=== PATIENT | male | born 1935 | race Caucasian/White ===

== ENCOUNTER → 2018-10-12 | Outpatient (CLI) | payer OTHER ==
[~2018-10-12] MED LIST: ALTACE10 MG PO; AMARYL1 MG PO; ASPIR 8181 MG PO; BENTYL 10 MG CA10 M1 PO; CARDIOTABS PO; JUICE PLUS PO; METAMUCIL1 EAC1 PO; MIRALAX17 GM PO; MYRBETRIQ25 MG PO; NITROGLYCERIN0.4 MG SUBLING; OMEPRAZOLE40 MG PO; RESTORIL15 M1 PO; SIMVASTATIN40 MG PO; STOOL SOFTENER1 EAC2 PO; TENORMIN25 MG PO; TESTOPEL75 MG IMPLANT; TUMS PO; VESICARE 5 MG TA5 MG PO; VIAGRA100 MG PO; ZANTAC 150MG T150 MG PO
== END ==
LOC: RAD 08:10
DX: K22.8 Other specified diseases of esophagus (principal); R13.13 Dysphagia, pharyngeal phase

== ENCOUNTER → 2018-10-18 | Outpatient (CLI) | payer OTHER ==
[~2018-10-18] MED LIST changes: +BYSTOLIC 5 MG5 M1 PO; +LIPITOR 20 MG T20 M1 PO; +PROTONIX40 M1 PO
== END ==
LOC: SPEECH 11:45 → RAD 11:45
DX: K22.8 Other specified diseases of esophagus (principal); M47.812 Spondylosis without myelopathy or radiculopathy, cervical region; Z98.890 Other specified postprocedural states

== ENCOUNTER → 2018-10-25 | Outpatient (CLI) | payer OTHER ==
[~2018-10-25] VITALS: Ht 172.7 cm; Wt 61.2 kg
--- NOTE | ~2018-10-25 | P ---
[facility] [place] [address] PROCEDURE REPORT Name: VERENA HARPER Room #: REG [facility].#: [id number] Admission: 10/25/18 ������������������ Attend Phys: Edward Quiroz MD Discharge: ������������������ Date of : 33 Report #: [id number] THIS REPORT FOR: //name// CC: Edward Pisano BRIEF HISTORY: The patient is an 83-year-old male with a history of achalasia. He complains of worsening reflux symptoms. Recent radiologic studies revealed poor emptying and stasis of material in the distal esophagus. He has had botox injections in the past and the last was about a year and a half ago. PREOPERATIVE DIAGNOSIS: Achalasia with increased symptoms. POSTOPERATIVE DIAGNOSES: 1. Achalasia. 2. Diffuse superficial esophagitis, likely related to stasis. 3. Distal esophageal diverticulum. 4. Submucosal lesion in the body of the stomach. 5. Diffuse gastritis. MEDICATIONS: Deep sedation with propofol per anesthesia. SPECIMEN: Biopsies of submucosal lesion in the body of the stomach. ESTIMATED BLOOD LOSS: 20 mL. PROCEDURE: EGD with injection of Botox and biopsy with hemostasis of biopsy site. FINDINGS: Prior to propofol sedation, the procedure of upper endoscopy discussed with the patient as well as potential risks and its complications. He indicates he understands and desires to proceed. With the patient in the left lateral decubitus position, the Olympus video endoscope was inserted in the cervical esophagus under direct vision without difficulty. Examination of this organ through its entire length revealed normal esophageal mucosa in the proximal esophagus. However, as we advanced the scope in the mid and distal esophagus, there was desquamation of the esophageal mucosa. It was not ulcerated or eroded. In essence, the esophagus looks like it was peeling in the distal esophagus. There was also noted to be lack of significant peristalsis. There was also some frothy secretions and a few bits of food material in the distal esophagus. This was cleared away. No ulcers or erosions were seen. The scope was advanced to the GE junction, which was about 42 cm. The GE junction was closed. However, with gentle pressure on the scope we were able to advance the scope up into the stomach, which was examined on end view as well as retroflexed views. There was diffuse gastritis, which was [facility] [address] [place] [address] PROCEDURE REPORT Name: VERENA HARPER Room #: REG CL [facility]#: [id number] Admission: 10/25/18 ������������������ Attend Phys: Edward Quiroz MD Discharge: ������������������ Date of : 33 Report #: [id number] previously noted. Upon retroflexion, no mass lesions were seen. The pylorus, duodenal bulb and postbulbar duodenal sweep were inspected and noted to be unremarkable. As the scope was drawn back in the esophagus, there was noted to be a 2 cm submucosal lesion on the body of the stomach. It had a benign appearance. The overlying mucosa was normal. The scope was withdrawn back into the distal esophagus and four injections were made at the level of the lower esophageal sphincter, which was within 1 to 2 cm of the squamocolumnar junction. 1 mL with 25 units of Botox was injected in each of the four quadrants. This was completed successfully. Then we advanced the scope back into the stomach to further evaluate the submucosal lesion in the body of the stomach. It was firmed with biopsy forceps and biopsies were obtained. However, on the biopsy oozing started and intermittently there was spurting from this lesion. We attempted to place a Hemoclip without success. The Hemoclip would not stay attached to the lesion. We then went to a 7-Cook Islander BICAP probe and several applications were applied without control of bleeding. The standard endoscope was withdrawn and we inserted a therapeutic scope. We identified the lesion with use of a 10-[place]er BICAP probe. The bleeding was completely controlled. We spent several minutes observing the site and no further bleeding was seen. The scope was withdrawn. The patient tolerated the procedure well. CONDITION OF THE PATIENT UPON DISCHARGE: Following procedure, the patient is drowsy and arousable. He will be discharged home when fully ambulatory. INSTRUCTIONS TO THE PATIENT AND FAMILY AT THE TIME OF DISCHARGE: Botox injection successfully completed. We will have the patient return to see me in followup in the office in about 16 weeks. He also reported going to a higher dose of pantoprazole, he had itching of the skin. We will switch to omeprazole 40 mg twice daily. We will follow up on biopsies of the submucosal lesion. The lesion is no more than 2 cm. At this point, it may be best just to observe this lesion. Discussed with the patient that bleeding is controlled, but if he should exhibit signs of bleeding he should present to the Emergency Room. ��������������������������������������������� ���������������������������������������� By: ��������������������������������������������� [id number] Edward Quiroz MD /jessa
--- NOTE | 2018-10-29 13:06 | PATH ---
[facility] [place] [address] PATHOLOGY RPT PROCEDURE Name: MEREDITHVERENA PRATEEK Room #: REG CL[facility]abhu [facility].#: [id number] ������������������ Admission: 10/25/18 ������������������ Date of : 33 Discharge: Report #: [id number] Path Case #: [id number] [facility] Accession Number: [id number] . 01 Material submitted: . stomach - BX SUBMUCOSAL LESION BODY OF STOMACH . 01 Clinical history: . Pre-OP DX: Dysphagia, achalasia Post-OP DX: Submucosal lesion . 02 Diagnosis: Gastric biopsy, "submucosal lesion body of stomach": - Mild reactive gastropathy. - Focal submucosal smooth muscle nodule. - The immunoperoxidase stain for Helicobacter pylori is negative. - The immunoperoxidase stains reveal Smooth Muscle Actin and Desmin positive, and S100 negative. The smooth muscle nodule could be minute benign leiomyoma or a fragment of muscular layer. - There is no evidence of atypia or malignancy. . (SHA:juliann; 10/29/2018) MBCordell/10/29/2018 . 02 Electronically signed: . Dwain Connolly MD, Pathologist NPI- [id number] . 01 Gross description: . Received in formalin labeled "Verena Harper, BX submucosal lesion body of stomach," are 5 segments of ravi soft tissue measuring 1.1 x 1.0 x 0.3 cm in aggregate dimensions and ranging from 0.2 to 0.7 cm in maximum dimension. The specimen is submitted entirely in cassette A1. (TSD; 10/25/2018) TOB/TOB . 02 Pathologist provided ICD-10: K31.9 . 02 CPT . 166852, W00604, R86778 Specimen Comment: A courtesy copy of this report has been sent to Specimen Comment: [phone], . Specimen Comment: Report sent to / DR ANDRADE Performed at: [address] [facility], [place], [place] [id number] [place] [address] PATHOLOGY RPT PROCEDURE Name: VERENA HARPER PRATEEK Room #: REG CL [facility].#: [id number] ������������������ Admission: 10/25/18 ������������������ Date of : 33 Discharge: Report #: [id number] Path Case #: [id number] MD Vasu Hernandez MD Phone: [phone] Performed at: [address] [facility] [id number] MD Ran Reese MD Phone: [phone]
== END | disposition home or self-care (01) ==
LOC: GI 06:45
DX: K31.9 Disease of stomach and duodenum, unspecified (principal); M62.89 Other specified disorders of muscle; K22.0 Achalasia of cardia; K57.90 Diverticulosis of intestine, part unspecified, without perforation or abscess without bleeding; K29.70 Gastritis, unspecified, without bleeding; K20.9 Esophagitis, unspecified; K31.89 Other diseases of stomach and duodenum; I10 Essential (primary) hypertension; E78.5 Hyperlipidemia, unspecified; E11.9 Type 2 diabetes mellitus without complications; K21.9 Gastro-esophageal reflux disease without esophagitis; N40.0 Benign prostatic hyperplasia without lower urinary tract symptoms; Z96.641 Presence of right artificial hip joint; Z96.651 Presence of right artificial knee joint; Z87.891 Personal history of nicotine dependence; Z85.828 Personal history of other malignant neoplasm of skin; Z95.5 Presence of coronary angioplasty implant and graft; Z90.49 Acquired absence of other specified parts of digestive tract; Z95.1 Presence of aortocoronary bypass graft; Z98.41 Cataract extraction status, right eye; Z98.42 Cataract extraction status, left eye; Z98.890 Other specified postprocedural states; Z79.899 Other long term (current) drug therapy; Z88.8 Allergy status to other drugs, medicaments and biological substances; Z79.82 Long term (current) use of aspirin
CPT/HCPCS: 62110; 62900

== ENCOUNTER → 2019-05-06 | Outpatient (CLI) | payer OTHER ==
[~2019-05-06] VITALS: Ht 172.7 cm; Wt 59.0 kg
--- NOTE | 2019-05-09 08:04 | P ---
[facility] [place] [address] [place] [address] PROCEDURE REPORT Name: MEREDITHVERENA Cordell Room #: REG [facility]#: [id number] Admission: 05/06/19 Attend Phys: Edward Quiroz MD Discharge: Date of : 33 Report #: [id number] THIS REPORT FOR: //name// CC: Edward Pisano MD BRIEF HISTORY: The patient is an 83-year-old male whom I have seen for a number of years. We have treated for achalasia with Botox injections. He was last treated with Botox early this year. He reports that he had no benefit from it. He reports that he is able to eat a meal as long as he cuts and chews well. He is able to swallow and finished an entire meal. He does not have vomiting, but he does complain of reflux, especially at nighttime when lying down. He has a hospital type bed at home and remains elevated at night. He is continued on PPIs and in spite of PPI and antireflux measures, he continues to have reflux type symptoms. He says he is not having problems swallowing at this time. He also has had recent pneumonias. PREOPERATIVE DIAGNOSIS: History of achalasia and increasing reflux symptoms. POSTOPERATIVE DIAGNOSES: 1. Diffuse distal esophagitis. 2. Small hiatus hernia. 3. Diffuse erythematous gastritis. MEDICATIONS: Deep sedation with propofol per anesthesia. SPECIMEN: None. ESTIMATED BLOOD LOSS: None. PROCEDURE: EGD with insertion of guidewire and dilation of esophagus over the wire. FINDINGS: Prior to propofol sedation, procedure of upper endoscopy was discussed with the patient as well as potential risks and its complications. He indicates he understands and desires to proceed. DESCRIPTION OF PROCEDURE: The patient was maintained in the supine position, his head and chest were raised about 30 to 40 degrees. Subsequently, the Olympus video endoscope was inserted in the cervical esophagus and advanced under direct vision without difficulty. Upon entering the esophagus, there was noted to be a frothy type material scattered about the esophagus. However, significant pools of fluid were not encountered. The distal esophagus was tortuous. Examination of mucosa revealed to be normal and intact in the proximal esophagus, but in the mid and distal esophagus, there was a pattern of desquamation of the squamous mucosa. However, when this peeling mucosa was [facility] [address] [place] [address] PROCEDURE REPORT Name: VERENA HARPER [id number] Admission: 05/06/19 Attend Phys: Edward Quiroz MD Discharge: Date of : 33 Report #: [id number] scraped away, the underlying mucosa was intact and appeared normal. No ulcers or erosions were seen. He was also noted to have a small mid esophageal diverticulum. The scope was advanced in the distal esophagus and indeed it was tortuous to some degree. It was also a little patulous, but not markedly dilated. The squamocolumnar junction was inspected and was noted to be intact. The GE junction was not tightly closed as one would typically see in achalasia. No mass or lesions were seen. The squamocolumnar junction was at about 42 cm. The scope was advanced and a small 2 cm less hiatus hernia was encountered. Mucosa of hernia was unremarkable. Scope was advanced in the stomach, was examined on end view as well as retroflexed views. There was a pattern of diffuse gastritis. No ulcers or erosions were seen. Upon retroflexion, no mass or lesions were seen. The pylorus, duodenal bulb, and postbulbar duodenal sweep were inspected and noted to be unremarkable. At that point, the scope was slowly withdrawn and careful circumferential views confirmed the above finding. As we withdrew the scope, a guidewire was placed in the biopsy channel and scope withdrawn over the wire. We subsequently dilated with passage of a 51-Greenlandic Savary dilator over the wire. CONDITION OF THE PATIENT UPON DISCHARGE: Following procedure, the patient was drowsy. He will be discharged home when fully ambulatory. INSTRUCTIONS TO THE PATIENT AND FAMILY AT THE TIME OF DISCHARGE: The patient complains of increasing reflux symptoms. He does have evidence of mucosal injury with desquamation of the squamous mucosa, but not typical ulcers or erosions as would be seen in reflux esophagitis. Classic features of achalasia at the GE junction were not identified today. At this point in time, we will see how he does. He will continue his PPIs. We will also arrange for a repeat esophageal manometry. If he does have achalasia, he may be retaining fluid, which he is calling reflux. However, I was surprised to see that there was no solid material whatsoever in the esophagus. Again, if he does have achalasia, endoscopic myotomy may be an option for him. However, I think we need further information before advancing forward. We will arrange for an esophageal manometry. <ELECTRONICALLY SIGNED> By: Edward Quiroz MD 05/09/19 0804 0952 Edward Quiroz MD /nt
== END | disposition home or self-care (01) ==
LOC: GI 07:00
DX: K21.0 Gastro-esophageal reflux disease with esophagitis (principal); K22.8 Other specified diseases of esophagus; K22.5 Diverticulum of esophagus, acquired; K29.70 Gastritis, unspecified, without bleeding; K44.9 Diaphragmatic hernia without obstruction or gangrene; I10 Essential (primary) hypertension; E78.5 Hyperlipidemia, unspecified; E11.9 Type 2 diabetes mellitus without complications; N40.0 Benign prostatic hyperplasia without lower urinary tract symptoms; Z90.49 Acquired absence of other specified parts of digestive tract; Z98.890 Other specified postprocedural states; Z96.641 Presence of right artificial hip joint; Z96.651 Presence of right artificial knee joint; Z98.41 Cataract extraction status, right eye; Z85.828 Personal history of other malignant neoplasm of skin; Z95.1 Presence of aortocoronary bypass graft; Z98.42 Cataract extraction status, left eye; Z79.899 Other long term (current) drug therapy; Z88.8 Allergy status to other drugs, medicaments and biological substances; Z79.82 Long term (current) use of aspirin
CPT/HCPCS: 62110; 62900

== ENCOUNTER 2019-06-17 11:18 | Inpatient (IN) | payer OTHER ==
[2019-06-10 13:42] LABS: URINE BILIRUBIN NEGATIVE (Negative); URINE BLOOD NEGATIVE (Negative); URINE CLARITY CLEAR; URINE COLOR YELLOW; URINE GLUCOSE-RANDOM* NEGATIVE (Negative); URINE KETONES NEGATIVE (Negative); URINE LEUKOCYTES-REFLEX NEGATIVE (Negative); URINE NITRITE-REFLEX NEGATIVE (Negative); URINE PROTEIN (DIPSTICK) NEGATIVE (Negative); URINE SPECIFIC GRAVITY 1.015 (1.005-1.035); URINE UROBILINOGEN 0.2 E.U./dl (0.2-1.0)
[2019-06-10 13:43] LABS: HEMATOCRIT 40.4 % (42.0-52.0); HEMOGLOBIN 13.1 gm/dL (14.0-18.0); MCH 29.9 pg (26.0-34.0); MCHC 32.4 g/dL (28.0-37.0); MCV 92.2 fL (80.0-100.0); RBC 4.38 mil/uL (4.50-6.00); RDW 15.1 % (10.5-14.5); WBC 7.1 thou/uL (4.0-11.0)
[2019-06-10 13:56] LABS: ALBUMIN 3.6 g/dL (3.4-5.0); CALCIUM 9.4 mg/dL (8.5-10.1); CREATININE 1.3 mg/dL (0.7-1.3); POTASSIUM 5.3 mmol/L (3.5-5.1)
[2019-06-10 13:57] LABS: INR 1.1; PROTIME 11.7 Seconds (9.3-11.4)
[2019-06-11 03:10] LABS: GLYCOHEMOGLOBIN (HGB A1C) 5.7 % (4.8-5.6)
--- NOTE | 2019-06-11 08:00 | EKG ---
[place] [address] [facility] [address] [place] [address] ELECTROCARDIOGRAM REPORT Name: VERENA HARPER Room #: PRE IN .#: [id number] Admission: Attend Phys: Scotty Bello MD Discharge: Date of : 33 Report #: [id number] THIS REPORT FOR: //name// [facility] Test Date: 2019-06-10 Test Time: 13:17:59 Pat Name: VERENA HARPER Department: Room: Gender: Base Remover: Sudarshan SHAHID : 1935 Requested By: Scotty Bello Order Number: [id number] MD: Brendan Durán Measurements Intervals [place] Rate: 67 P: 56 MA: 204 QRS: 28 QRSD: 76 T: 12 QT: 382 QTc: 404 Interpretive Statements Sinus rhythm Anteroseptal infarct, age indeterminate Compared to ECG 08/24/2006 08:15:42 No significant changes Electronically Signed On 06-11-2019 8:00:05 [employer] by Brendan Durán [email or web address] <ELECTRONICALLY SIGNED> By: Brendan Durán MD, [facility] 06/11/19 0800 1317 16 Brendan Durán MD, FACC /EPI
[~2019-06-17] VITALS: Ht 170.2 cm; Wt 60.8 kg
[~2019-06-17 11:18] MED LIST changes: +DEXILANT60 MG PO
[2019-06-17 14:33] VITALS: BP 161/65
[2019-06-17 18:18] VITALS: BP 148/79
[2019-06-17 18:30] VITALS: BP 134/68
--- NOTE | 2019-06-17 18:45 | NUR ---
ASSUMED CARE OF THE PT AT 0700. PT IS ALERT AND ORIENTED X4. PT IS A FALL RISK. FALL PRECAUTIONS IN PLACE. LIQUID DIET TOLERATED, ADVANCED TO REGUKAR DIET. NO PAIN MENTIONED. BED IN LOWEST POSITION AND CALL LIGHT IS WITHIN REACH. WILL CONTINUE TO MONITOR THE PT.
[2019-06-17 19:30] VITALS: BP 130/63
[2019-06-17 20:30] VITALS: BP 145/76
[2019-06-17 21:00] VITALS: BP 145/76
[2019-06-18] VITALS: BP 121/65
[2019-06-18 04:10] VITALS: BP 126/70
--- NOTE | 2019-06-18 04:27 | NUR ---
ASSUMED CARE OF PT @1900 PT ASSESSED AT START OF SHIFT A&OX4 FOR THIS NURSE. DENIES PAIN. INFORMED PT THAT BLOCK WILL DECLINE LATER ON AND SHOULD INFORM THIS NURSE WHEN PAIN MED IS NEEDED PT VERBALIZIED UNDERSTANDING. URINAL AT BEDSIDE TO MONITOR OUTPUT. IV INTACT AND FLUIDS INFUSING. FARHAD DRESSING AND SCD'S IN PLACE. PT CALLS TO LET NEEDS KNOWN. FALL PREC MAINTAINED WILL CONT WITH POC TILL EOS.
[2019-06-18 06:09] LABS: HEMATOCRIT 35.9 % (42.0-52.0); HEMOGLOBIN 11.7 gm/dL (14.0-18.0); MCHC 32.4 g/dL (28.0-37.0); MCV 92.5 fL (80.0-100.0); RBC 3.89 mil/uL (4.50-6.00); RDW 14.9 % (10.5-14.5); WBC 9.8 thou/uL (4.0-11.0)
[2019-06-18 07:30] VITALS: BP 119/65
[2019-06-18 08:07] LABS: HBsAG-EMPLOYEE EXPOSURE Negative (Negative); HCV AB-EMPLOYEE EXPOSURE <0.1 (0.0-0.9)
--- NOTE | 2019-06-18 09:54 | O ---
[facility] [place] [address] OPERATIVE REPORT Name: VERENA HARPER Room #: 445-P [facility] IN M.R.#: [id number] Admission: 06/17/19 Attend Phys: Scotty Bello MD Discharge: Date of : 33 Report #: [id number] THIS REPORT FOR: //name// CC: Betito Bello DATE OF SERVICE: 06/17/2019 PREOPERATIVE DIAGNOSIS: Left knee osteoarthritis. POSTOPERATIVE DIAGNOSIS: Left knee osteoarthritis. PROCEDURE: Left total knee arthroplasty. SURGEON: Scotty Bello MD. CONTRACT SPECIALIST: Radha Mercedes PA-C. INDICATIONS FOR CONTRACT SPECIALIST: Throughout the case, extensive retraction and manipulation of the knee was required. This was afforded to me by my assistant dean of students. ANESTHESIA: LMA with an adductor canal block. IMPLANTS: Schmitz and Nephew size 7 Legion cobalt chrome posterior stabilized femur, size 5 tibia, size 10 polyethylene and size 35 patella. TOURNIQUET TIME: 55 minutes. ESTIMATED BLOOD LOSS: 25 mL. COMPLICATIONS: None. SPECIMENS: None. CONDITION UPON LEAVING THE OPERATING ROOM: Stable. INDICATIONS FOR PROCEDURE: The patient is an 83-year-old gentleman with left knee osteoarthritis who failed conservative measures for this and after discussion with him, he elected for left total knee arthroplasty. DESCRIPTION OF PROCEDURE: Risks, benefits, alternatives, complications were discussed in detail with the patient including but not limited to risk of anesthesia, risk of damage to nerves, arteries, blood vessels, risk for infection, bleeding, risk for continued knee pain, need for reoperation. Informed consent was obtained from the patient. Left knee was appropriately marked in the preoperative holding area. IV Ancef was given for preoperative [facility] [address] [place] [address] OPERATIVE REPORT Name: VERENA HARPER Cordell Room #: 445-P [facility] IN M.R.#: [id number] Admission: 06/17/19 Attend Phys: Scotty Bello MD Discharge: Date of : 33 Report #: [id number] antibiotics. Adductor canal block was placed by anesthesia. He was brought to the operating room and placed in supine position on operating room table. LMA anesthesia was induced without complication. Tourniquet was placed on the left thigh. Left lower extremity was prepped and draped in normal sterile fashion. Timeout was performed properly identifying the patient and procedure as well as the instrumentation and implants. All in the operating room were in agreement. Left lower extremity was exsanguinated, tourniquet was inflated. Tourniquet time was 55 minutes. Standard midline approach to knee was made with a 10 blade through the skin. Dissection was taken down sharply to the fascia and deep flaps were developed medially and laterally. Fresh 10 blade was used to make a medial parapatellar arthrotomy and the knee was inspected. There was garg-of-hzlhvyjq tricompartmental osteoarthritis. ACL and PCL were removed sharply. Reference pins were placed in the femur and the tibia and the knee was then digitally mapped using the [employer] robotic system. Intraoperative plan was made and we sized the size 7 femur with a size 5 tibia and a size 11 spacer. After acceptance of the intraoperative plan, the distal femoral cut was made with a Navio brissa. The 4-in-1 cutting block was pinned in place and the anterior, posterior and chamfer cuts were made. Attention was then turned to the tibia. Remainder of the menisci removed with Bovie cautery. Tibial resection guide was pinned in place using the Navio for placement and the tibial resection was made. After this, flexion and extension gaps were checked and found to have good balance in flexion and extension both medially and laterally. Tibia was sized, found to be a size 5. A size 5 tibial trial was placed, pinned and punched. A size 7 femoral trial was placed and the box cut was made. This was then trialed with a size 9 and then a size 10 polyethylene. A size 10 polyethylene demonstrated 1-2 mm of laxity medially and laterally throughout range of motion of the knee. A 9 mm was resected from the posterior surface of the patella and a size 35 patellar trial button was placed. Knee was taken through range of motion, found to be stable, found to have good patellar tracking. Trial components were removed. Bony ends were thoroughly irrigated with normal saline. A final size 5 tibia, size 7 Legion cobalt chrome posterior stabilized femur and a size 35 patella were cemented in place using standard cementation techniques. While the cement cured, a periarticular injection consisting of morphine, ropivacaine, epinephrine and Toradol was placed around the knee joint capsule. After the cement cured, the tourniquet was deflated. Hemostasis was obtained with Bovie cautery. Final size 10 polyethylene was placed. A gram of vancomycin was placed deep in the joint. Fascia was closed with 0 Vicryl, skin was closed with 2-0 Vicryl. Monocryl, Dermabond and a FARHAD dressing was applied. The patient tolerated this procedure well and went to recovery room under care of anesthesia postoperatively. <ELECTRONICALLY SIGNED> By: Scotty Bello MD 06/18/19 0954 1630 1728 Scotty Bello MD /nt
[2019-06-18] MEDS ORDERED: ASPIR 8181 MG PO (11:52)
[2019-06-18] MEDS ORDERED: NEURONTIN 300300 M1 PO (11:52)
--- NOTE | 2019-06-18 12:46 | NUR ---
PT A&OX4. IV INTACT IN L FA. FARHAD DRSG TO L KNEE C/D/I. POLAR PACK IN PLACE. PT UNSTEADY WITH PT TODAY. ENCOURAGED PT TO TAKE PO PAIN MED PRIOR TO PT TREATMENT. WILL PLAN ON PT TO DC AFTER THERAPT TOMMOROW.
--- NOTE | 2019-06-18 14:13 | NUR ---
ASSESSMENT-PT LIVES AT HOME WITH HIS WHO IS ABOUT HIS SAME AGE. SHE MOSTLY WALKS ON HER OWN IN THE HOME AND USES A ROLLER WALKER OUTSIDE OF THE HOME. PT WALKED ON HIS OWN AND DID HIS OWN ADLS PRIOT TO ADMISSION. BOTH DRIVE. DOES THE LAUNDRY, THEY HAVE A CLEANING PERSON THAT COMES NEEDED AND THEY COOK SOME AT HOME BUT WIRE [employer]IPPER MEALS AT [employer]. THEY HAVE A SON IN [place], [place] AND A DTR IN [facility] WHO IS COMING IN TOWN TODAY TO STAY A COUPLE OF WEEKS TO HELP OUT. PT WILL NEED A ROLLER WALKER FOR HOME. OFFERED OPTIONS AND HE CHOSE [employer]. [facility] WILL ISSSUE A ROLLER WALKER IN THE AM. PT HAS HIS OUTPT APPT AT [facility] ON . FOLLOWING TO ASSIST WITH DC PLANNING.
[2019-06-18 19:08] VITALS: BP 166/57
[2019-06-19 04:38] VITALS: BP 113/49
[2019-06-19 05:47] LABS: HEMATOCRIT 36.1 % (42.0-52.0); HEMOGLOBIN 11.6 gm/dL (14.0-18.0); MCH 29.7 pg (26.0-34.0); MCV 92.8 fL (80.0-100.0); RBC 3.89 mil/uL (4.50-6.00); RDW 15.2 % (10.5-14.5); WBC 11.5 thou/uL (4.0-11.0)
--- NOTE | 2019-06-19 06:35 | NUR ---
Received report from off going RN and assumed patient care. Patient is AAOx4 and on room air. Patient noted to have a dressing and andree wrap on his left left knee from his knee replacement surgery. Patient voiced no complaints of pain or any concerns. Patient slept well throughout the night. Plan is for discharge today.
[2019-06-19 08:06] VITALS: BP 133/65
--- NOTE | 2019-06-19 10:54 | NUR ---
ASSUMED CARE OF PT AT 0700. PT IS AOX4, NO C/O PAIN,VSS, AND POLAR ICE IN PLACE. PT DRESSING IS DRY & INTACT, USING URINAL, AND UP TO RESTROOM WITH ASSIST. PT WORKING WELL WITH PHYSICAL THERAPY. CALL LIGHT IN REACH, USES APPROX., FALL PRECAUTIONS IN PLACE, IV DISCONTINUED FROM LEFT WRIST. DISCHARGING HOME WHEN FAMILY COMES AROUND NOON TODAY.
[2019-06-19 11:01] VITALS: BP 133/65
== END 2019-06-19 13:46 | disposition home or self-care (01) | DRG 470 ==
LOC: 4S 11:18 → TBA 11:18 → PRE 11:41 → TBA 15:27 → PRE 16:56 → 4S 17:23 → ENTRNSPT 06-19 13:15 → EDTRNSPTSTS 06-19 13:17 → 4S 06-19 13:46
PROVIDERS: ADMIT Orthopaedic Surgery
PROC: 8E0Y0CZ Robotic Assisted Procedure of Lower Extremity, Open Approach (ICD-10-PCS; principal; 2019-06-17)
PROC: 0SRD0J9 Replacement of Left Knee Joint with Synthetic Substitute, Cemented, Open Approach (ICD-10-PCS; principal; 2019-06-17)
DX: M17.12 Unilateral primary osteoarthritis, left knee (principal); Z96.641 Presence of right artificial hip joint; Z96.651 Presence of right artificial knee joint; Z88.1 Allergy status to other antibiotic agents; Z88.8 Allergy status to other drugs, medicaments and biological substances; Z98.42 Cataract extraction status, left eye; Z98.41 Cataract extraction status, right eye; Z87.891 Personal history of nicotine dependence; Z79.899 Other long term (current) drug therapy
CPT/HCPCS: 10102; 50010; 50101; 50415; 50954; 51130; 51225; 51320; 52001; 52282; 53000; 53078; 53364; 54118; 56527; 56528; 57095; 57103; 57110; 57127; 57179; 62110; 62900; 70005

== ENCOUNTER → 2019-06-25 | Outpatient (CLI) | payer OTHER ==
[~2019-06-25] VITALS: Ht 170.2 cm; Wt 61.2 kg
[~2019-06-25] MED LIST changes: +NEURONTIN 300300 M1 PO
== END | disposition home or self-care (01) ==
LOC: GI 07:04
DX: K21.9 Gastro-esophageal reflux disease without esophagitis (principal); I10 Essential (primary) hypertension; N40.0 Benign prostatic hyperplasia without lower urinary tract symptoms; E11.9 Type 2 diabetes mellitus without complications; E78.5 Hyperlipidemia, unspecified; Z98.890 Other specified postprocedural states; Z79.899 Other long term (current) drug therapy; Z90.49 Acquired absence of other specified parts of digestive tract; Z95.1 Presence of aortocoronary bypass graft; Z85.828 Personal history of other malignant neoplasm of skin; Z96.651 Presence of right artificial knee joint; Z96.641 Presence of right artificial hip joint; Z98.41 Cataract extraction status, right eye; Z98.42 Cataract extraction status, left eye; Z88.8 Allergy status to other drugs, medicaments and biological substances; Z79.82 Long term (current) use of aspirin

== ENCOUNTER → 2019-06-27 | Outpatient (CLI) | payer OTHER | LOC: ULTRA 15:34 | DX: M25.462 Effusion, left knee (principal) ==

== ENCOUNTER 2019-07-06 07:25 | Observation (INO) | payer OTHER ==
[2019-07-06 11:21] VITALS: BP 152/84
[2019-07-06 11:32] VITALS: BP 150/75
--- NOTE | 2019-07-06 13:12 | NUR ---
REceived pt from the ER, admission history could not be completed system is not allowing me to enter into the admission history piece. VS stable, ice on the left knee monitored with FARHAD dressing c/d/i./
[2019-07-06 18:02] VITALS: BP 146/76
[2019-07-06 18:03] VITALS: BP 136/70
[2019-07-06 20:30] VITALS: BP 137/60
--- NOTE | 2019-07-07 02:55 | NUR ---
ASSUMED PT CARE AT 1900. PT DENIES ANY PAIN. DRESSING DRY AND INTACT WITH THE ICE PACK OVER IT. SECOND BAG OF ANTIBIOTICS GIVEN. PT SLEPT ALL NIGHT.
[2019-07-07 04:15] VITALS: BP 112/51
[2019-07-07 07:43] VITALS: BP 135/57
[2019-07-07 10:42] VITALS: BP 136/57
--- NOTE | 2019-07-07 11:29 | NUR ---
PT CARE ASSUMED AT 0700. A&Ox4. DISCHARGE INSTRUCTIONS GIVEN TO PT. SCRIPTS GIVEN. PT. COPY IN CHART. IV HAS BEEN REMOVED. AWAITING PT TO ARRIVE FOR DISCHARGE. LAST ANTIBIOTICS RECEIVED. BED LOCKED IN LOW POSITION, LOCKED. CALL LIGHT IN REACH.
--- NOTE | 2019-07-18 16:33 | O ---
[facility] [place] [address] OPERATIVE REPORT Name: MEREDITHVERENA Cordell Room #: 448-P 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 PROCEDURE PERFORMED: Incision and debridement, left knee skin and subcutaneous tissue. SURGEON: Ruby Gaines MD ANESTHESIA: General mask anesthesia. ESTIMATED BLOOD LOSS: 5 mL. TOURNIQUET TIME: 24 minutes. COMPLICATIONS: None. CONDITION: Stable. DISPOSITION: Recovery room. INDICATIONS: The patient is an 83-year-old male with the above-mentioned diagnosis. He elects for operative treatment. The risks, benefits, alternatives and complications were discussed including but not limited to infection, inability to resolve the infection, wound healing problems. Informed consent was obtained. The correct extremity was identified and labeled by myself after verbal confirmation of the patient as well as visual confirmation and signed informed consent. DESCRIPTION OF PROCEDURE: The patient was brought to the operating room and placed on a supine position. Tourniquet placed over padding on the patient's left lower extremity. Left lower extremity was sterilely prepped and draped in the usual fashion. Final timeout was taken to verify correct patient, operative procedure, operative site, all concurred. The leg was elevated, but was not exsanguinated and the tourniquet inflated. Approximately, a 5-cm incision was made at the inferior border of the incision over the pinhole area that was draining. There is no erythema. A tract was noted that measured approximately [facility] [address] [place] [address] OPERATIVE REPORT Name: VERENA HARPER Room #: 448-P [facility] Miguel Ivan#: [id number] Admission: 07/06/19 Attend Phys: Ruby Gaines, Discharge: 07/07/19 Date of : 31 Report #: [id number] 5 cm, had some serous fluid and not a significant portion. The area was thoroughly debrided with a rongeur. Deep cultures were taken. The fascia was inspected. It was intact. The wound was then thoroughly irrigated with 3 liters of antibiotic saline. The subcutaneous tissue was closed with 2-0 Vicryl suture. The skin was closed with 2-0 nylon suture. The wound was dressed with FRAHAD dressing. All toes were pink with brisk capillary refill at the conclusion of case after deflation of the tourniquet. All sponge and needle counts were correct. The patient was transferred to postoperative stable condition. Of note, as soon as the tourniquet was deflated, 2 g of Ancef was given. <ELECTRONICALLY SIGNED> By: Ruby Gaines MD 07/18/19 1633 [id number] Ruby Gaines MD /nt
== END 2019-07-07 11:33 | disposition home or self-care (01) ==
LOC: TBA 07:25 → 4S 11:17 → TBA 16:33 → 4S 07-07 11:33
PROVIDERS: ADMIT Orthopaedic Surgery Hand Surgery
DX: T81.89XA Other complications of procedures, not elsewhere classified, initial encounter (principal); M17.12 Unilateral primary osteoarthritis, left knee; I25.10 Atherosclerotic heart disease of native coronary artery without angina pectoris; I10 Essential (primary) hypertension; K21.9 Gastro-esophageal reflux disease without esophagitis; E78.5 Hyperlipidemia, unspecified; X58.XXXA Exposure to other specified factors, initial encounter; Y92.89 Other specified places as the place of occurrence of the external cause; Y93.89 Activity, other specified; Y99.8 Other external cause status
CPT/HCPCS: 50010; 50101; 50386; 56524; 56525; 57091; 57116; 57180; 62110; 62900; 70005

== ENCOUNTER → 2019-07-25 | Outpatient (CLI) | payer OTHER | LOC: SJCVC 11:42 | DX: I25.810 Atherosclerosis of coronary artery bypass graft(s) without angina pectoris (principal); I12.9 Hypertensive chronic kidney disease with stage 1 through stage 4 chronic kidney disease, or unspecified chronic kidney disease; E11.22 Type 2 diabetes mellitus with diabetic chronic kidney disease; N18.3 Chronic kidney disease, stage 3 (moderate); I65.23 Occlusion and stenosis of bilateral carotid arteries; E78.00 Pure hypercholesterolemia, unspecified; K21.9 Gastro-esophageal reflux disease without esophagitis; Z79.82 Long term (current) use of aspirin; Z79.899 Other long term (current) drug therapy; Z88.1 Allergy status to other antibiotic agents; Z87.891 Personal history of nicotine dependence; Z95.1 Presence of aortocoronary bypass graft ==

== ENCOUNTER → 2019-10-10 | Outpatient (CLI) | payer OTHER ==
[~2019-10-10] VITALS: Ht 170.2 cm; Wt 61.2 kg
[~2019-10-10] MED LIST changes: +ACID REDUCER20 M1 PO; +ASA81BEC PO
--- NOTE | ~2019-10-10 | P ---
[facility] [place] [address] PROCEDURE REPORT Name: VERENA HARPER Room #: REG [facility]#: [id number] Admission: 10/10/19 Attend Phys: Edward Quiroz MD Discharge: Date of : 31 Report #: [id number] THIS REPORT FOR: cc: Betito Pisano MD,Betito Quiroz,Edward Villegas MD ~ CC: Edward Pisano MD OUTPATIENT UPPER ENDOSCOPY BRIEF HISTORY: The patient is an 84-year-old male with history of achalasia. I followed him for sometimes. We have used Botox in the past and at one point, he said it was not all that helpful. However, he declines to have any other procedures such as endoscopic or surgical myotomy. He now reports increasing symptoms and he tells me now that Botox was helpful in the past. Due to the increase in symptoms, he returns for Botox injection for further management of his achalasia. PREOPERATIVE DIAGNOSIS: Achalasia, increase in symptoms. POSTOPERATIVE DIAGNOSES: 1. Achalasia. 2. Erosive esophagitis. 3. Moderately severe diffuse gastritis. MEDICATIONS: Deep sedation with propofol per anesthesia. SPECIMEN: None. ESTIMATED BLOOD LOSS: 3 mL. PROCEDURE: EGD with Savary dilation esophagus and Botox injection. FINDINGS: Prior to propofol sedation, procedure of upper endoscopy dilation and Botox injection was reviewed with the patient as well as potential risks and its complications. He indicates he understands and desires that we proceed. DESCRIPTION OF PROCEDURE: With the patient in left lateral decubitus position, the Olympus video endoscope was inserted in the cervical esophagus under direct vision without difficulty. Examination of this organ through its entire length revealed normal esophageal mucosa in the proximal esophagus distally. There was some frothy material, which was aspirated away. A large amount of fluid was not seen in the esophagus. However, the distal esophagus was somewhat tortuous. He does have achalasia, but was not markedly dilated. There were no retained solids in the esophagus. Again, he does have esophagitis with some desquamation [facility] [address] [place] [address] PROCEDURE REPORT Name: VERENA HARPER [facility] [id number] Admission: 10/10/19 Attend Phys: Edward Quiroz MD Discharge: Date of : 31 Report #: [id number] of the squamous mucosa in the esophagus. However, deep ulcers were not seen. The squamocolumnar junction was then identified. The Z-line was unremarkable. The scope did pass easily through the GE junction in the stomach. The stomach was examined on end view as well as retroflexed views. There was moderately severe striped erythematous gastritis. Upon retroflexion, no mass lesions were seen. The pylorus was unremarkable. Duodenal bulb was unremarkable and postbulbar duodenal sweep was unremarkable. The patient reports that he also has had some benefit from bougie dilation. He requested to be repeated. Therefore, the Savary guidewire was passed through the biopsy channel of the scope into the duodenal bulb. The scope was withdrawn over the wire. We then dilated with single passage of 51-Hungarian Savary dilator, which was tolerated well. The scope was reintroduced. There was a small amount of blood in the esophagus. However, significant mucosal trauma was not seen. The squamocolumnar junction was intact. We then injected 100 units of Botox with divided among 4 injections into 4 quadrants 1-2 cm above the GE junction. The patient tolerated the procedure well and the scope was withdrawn. CONDITION OF THE PATIENT UPON DISCHARGE: Following procedure, the patient drowsy. He will be discharged home when fully ambulatory. INSTRUCTIONS TO THE PATIENT AND FAMILY AT THE TIME OF DISCHARGE: Successful Botox injection and esophageal dilation today. We will have the patient return to see me in the office hopefully in about 3 months or so to further evaluate his symptoms. We will once again review with him his results with Botox and whether or not further intervention is indicated. By: 0835 1022 Edward Quiroz MD /jessa
== END | disposition home or self-care (01) ==
LOC: GI 07:10
DX: K22.0 Achalasia of cardia (principal); K22.10 Ulcer of esophagus without bleeding; K29.70 Gastritis, unspecified, without bleeding; I10 Essential (primary) hypertension; E11.9 Type 2 diabetes mellitus without complications; K21.9 Gastro-esophageal reflux disease without esophagitis; E78.5 Hyperlipidemia, unspecified; Z98.890 Other specified postprocedural states; Z79.899 Other long term (current) drug therapy; Z85.828 Personal history of other malignant neoplasm of skin; Z95.1 Presence of aortocoronary bypass graft; Z96.641 Presence of right artificial hip joint; Z90.49 Acquired absence of other specified parts of digestive tract; Z96.653 Presence of artificial knee joint, bilateral; Z87.891 Personal history of nicotine dependence; Z87.01 Personal history of pneumonia (recurrent)

== ENCOUNTER → 2020-03-30 | Outpatient (CLI) | payer OTHER | LOC: SJCVCIMAG 09:18 | PROVIDERS: ATTEND Internal Medicine Cardiovascular Disease | DX: I65.23 Occlusion and stenosis of bilateral carotid arteries (principal); R94.31 Abnormal electrocardiogram [ECG] [EKG]; I25.10 Atherosclerotic heart disease of native coronary artery without angina pectoris; I10 Essential (primary) hypertension; E78.00 Pure hypercholesterolemia, unspecified; E11.9 Type 2 diabetes mellitus without complications; Z79.899 Other long term (current) drug therapy; Z95.1 Presence of aortocoronary bypass graft; Z87.891 Personal history of nicotine dependence ==

== ENCOUNTER → 2020-08-12 | Outpatient (CLI) | payer OTHER | LOC: SJCVC 13:00 | PROVIDERS: ATTEND Internal Medicine Cardiovascular Disease | DX: R94.31 Abnormal electrocardiogram [ECG] [EKG] (principal); I25.10 Atherosclerotic heart disease of native coronary artery without angina pectoris; I65.23 Occlusion and stenosis of bilateral carotid arteries; E78.00 Pure hypercholesterolemia, unspecified; E11.22 Type 2 diabetes mellitus with diabetic chronic kidney disease; I12.9 Hypertensive chronic kidney disease with stage 1 through stage 4 chronic kidney disease, or unspecified chronic kidney disease; E78.5 Hyperlipidemia, unspecified; N18.30 Chronic kidney disease, stage 3 unspecified; K21.9 Gastro-esophageal reflux disease without esophagitis; Z95.1 Presence of aortocoronary bypass graft; Z87.891 Personal history of nicotine dependence; Z72.89 Other problems related to lifestyle; Z79.82 Long term (current) use of aspirin; Z79.899 Other long term (current) drug therapy; Z88.1 Allergy status to other antibiotic agents ==

== ENCOUNTER → 2020-08-14 | Outpatient (CLI) | payer OTHER | LOC: SJCVCIMAG 10:38 | PROVIDERS: ATTEND Internal Medicine Cardiovascular Disease | DX: I25.10 Atherosclerotic heart disease of native coronary artery without angina pectoris (principal); R00.0 Tachycardia, unspecified; I49.3 Ventricular premature depolarization; R94.31 Abnormal electrocardiogram [ECG] [EKG]; Z95.1 Presence of aortocoronary bypass graft; Z79.899 Other long term (current) drug therapy; Z87.891 Personal history of nicotine dependence ==

== ENCOUNTER → 2021-03-17 | Outpatient (CLI) | payer OTHER | LOC: SJCVC 13:12 | PROVIDERS: ATTEND Internal Medicine Cardiovascular Disease | DX: R94.31 Abnormal electrocardiogram [ECG] [EKG] (principal); I25.10 Atherosclerotic heart disease of native coronary artery without angina pectoris; I10 Essential (primary) hypertension; E78.00 Pure hypercholesterolemia, unspecified; E11.9 Type 2 diabetes mellitus without complications; Z95.1 Presence of aortocoronary bypass graft; K21.9 Gastro-esophageal reflux disease without esophagitis; Z87.891 Personal history of nicotine dependence; Z79.82 Long term (current) use of aspirin; Z79.899 Other long term (current) drug therapy; Z88.1 Allergy status to other antibiotic agents; Z82.49 Family history of ischemic heart disease and other diseases of the circulatory system ==

== ENCOUNTER → 2021-08-17 | Outpatient (CLI) | payer OTHER | LOC: SJCVCIMAG 10:50 | PROVIDERS: ATTEND Internal Medicine Cardiovascular Disease | DX: I65.23 Occlusion and stenosis of bilateral carotid arteries (principal); I25.9 Chronic ischemic heart disease, unspecified; R00.0 Tachycardia, unspecified; I49.3 Ventricular premature depolarization; I25.10 Atherosclerotic heart disease of native coronary artery without angina pectoris ==